=== PATIENT | female | born 1945 | race African-American/Black ===

== ENCOUNTER 2024-07-25 21:58 | Emergency (ER) | payer OTHER ==
[~2024-07-25] VITALS: Ht 170.2 cm; Wt 55.0 kg
[2024-07-25 22:05] VITALS: BP 155/73; PULSE 90; RESP 18; TEMP 36.6; O2SAT 99
== END 2024-07-25 22:51 ==
LOC: ER 21:58
DX: F41.9 Anxiety disorder, unspecified (principal); Z20.89 Contact with and (suspected) exposure to other communicable diseases
CPT/HCPCS: 99283